=== PATIENT | male | born 1995 | race Hispanic/Latino ===

== ENCOUNTER 2019-02-04 08:52 | Emergency (ER) | payer OTHER ==
[2019-02-04] MEDS ORDERED: IBUPROFEN 400 MG TABLET ONE (09:13)
== END 2019-02-04 10:07 | disposition home or self-care (01) ==
LOC: EDH 08:52
DX: S83.91XA Sprain of unspecified site of right knee, initial encounter (principal); Z72.0 Tobacco use; X50.1XXA Overexertion from prolonged static or awkward postures, initial encounter; Y93.89 Activity, other specified; Y92.098 Other place in other non-institutional residence as the place of occurrence of the external cause; Y99.8 Other external cause status
CPT/HCPCS: 73562